=== PATIENT | female | born 1970 ===

== ENCOUNTER → 2021-07-26 08:00 | Outpatient (CLI) | payer OTHER | END | disposition home or self-care (01) | LOC: ADM 07-21 13:45 → LAB 08:00 → AMB-ENDOS 13:45 → EDSTATUS 13:45 | PROVIDERS: ATTEND Surgery | DX: U07.1 COVID-19 (principal) ==

== ENCOUNTER 2022-09-20 05:22 | Day surgery (SDC) | payer OTHER | END 2022-09-20 10:35 | disposition home or self-care (01) | LOC: AMB-ENDOS 05:22 | PROVIDERS: ATTEND Surgery | DX: K57.30 Diverticulosis of large intestine without perforation or abscess without bleeding (principal); R10.84 Generalized abdominal pain; R19.4 Change in bowel habit; K62.5 Hemorrhage of anus and rectum; K62.89 Other specified diseases of anus and rectum; Z90.49 Acquired absence of other specified parts of digestive tract; Z88.2 Allergy status to sulfonamides; Z20.822 Contact with and (suspected) exposure to COVID-19 ==

== ENCOUNTER 2022-11-02 05:15 | Day surgery (SDC) | payer OTHER ==
[~2022-11-02] VITALS: Ht 165.1 cm; Wt 89.8 kg
[2022-11-02] MEDS ORDERED: OXYC1TAB9 PO (08:24)
== END 2022-11-02 10:45 | disposition home or self-care (01) ==
LOC: CIR.AMB 05:15
PROVIDERS: ATTEND Surgery
DX: K64.2 Third degree hemorrhoids (principal); K62.5 Hemorrhage of anus and rectum; K62.89 Other specified diseases of anus and rectum; R10.32 Left lower quadrant pain; K57.30 Diverticulosis of large intestine without perforation or abscess without bleeding; R19.4 Change in bowel habit; Z20.822 Contact with and (suspected) exposure to COVID-19; Z91.041 Radiographic dye allergy status; Z91.013 Allergy to seafood